=== PATIENT | female | born 1950 | race Caucasian/White ===

== ENCOUNTER 2019-08-12 11:23 | Emergency (ER) | payer MEDICARE, OTHER ==
--- NOTE | 2019-08-12 12:26 | ED ---
Shortness of Breath - HPI Summary HPI Summary: Patient is a 69 y/o F presenting to the ED via EMS for a chief complaint of shortness of breath that began on 08/06/19. Patient is present with her sister. Patient complains of nonproductive cough, wheezing, nasal congestion, sore throat, bilateral LE edema, and nausea. The shortness of breath worsens when lying down. Patient also notes an ear ache, more on the right than left, which she attributes to being on an airplane recently. Patient denies fever, vomiting , or diarrhea. She was prescribed an antibiotic by her dentist, amoxicillin, for tooth pain that she took for her symptoms without relief. She also took ibuprofen without relief. Recently, the patient was on vacation in [facility] for 2 weeks visiting family, returning to the on 08/10/19. She denies positive sick contact. Patient received an influenza vaccination this year. PMHx is significant for spinal stenosis, depression, and sepsis after a back surgery for a spinal fracture. She takes pain medications. In the past, she has used an inhaler for pneumonia. Patient smokes 3 cigarettes a day, but denies alcohol use. Medications reviewed. Allergies noted. - History of Current Complaint Chief Complaint: EDShortnessOfBreath Hx Obtained From: Patient Onset/Duration: Sudden Onset, Still Present Timing: Constant Current Severity: Moderate Dyspnea At: Rest Aggravating Factors: Nothing Alleviating Factors: Nothing Associated Signs & Symptoms: Cough (Nonproductive), Wheezing, Nasal Congestion - 0, Edema - Bilateral LE - Allergy/Home Medications Allergies/Adverse Reactions: Allergies Allergy/AdvReac Type Severity Reaction Status Date / Time MS Sulfa Drugs Allergy Severe Anaphylatic Verified 04/28/17 12:21 Shock PMH/Surg Hx/FS Hx/Imm Hx Previously Healthy: Yes Endocrine/Hematology History: Reports: Hx Anemia Denies: Hx Anticoagulant Therapy, Hx Blood Disorders, Hx Blood Transfusions, Hx Bone Marrow Disease, Hx Diabetes, Hx Systemic Lupus Erythematosus, Hx Sickle Cell Disease, Hx Thyroid Disease, Hx Unexplained Bleeding, Other Endocrine/ Hematological Disorders Cardiovascular History: Reports: Hx Syncope Denies: Hx Aneurysm, Hx Angina, Hx Angioplasty, Hx Auto Implanted Cardiovert Defib, Hx Cardiac Arrest, Hx Cardiomegaly, Hx Congenital Heart Disease, Hx Congestive Heart Failure, Hx Coronary Artery Disease, Hx Deep Vein Thrombosis, Hx Hypercholesterolemia, Hx Hypotension, Hx Hypertension, Hx Pacemaker/ICD, Hx Peripheral Vascular Disease, Hx Rheumatic Fever, Hx Valvular Heart Disease, Other Cardiovascular Problems/Disorders Respiratory History: Reports: Hx Pneumonia Denies: Hx Asthma, Hx Chronic Bronchitis, Hx Chronic Obstructive Pulmonary Disease (COPD), Hx Cystic Fibrosis, Hx Lung Cancer, Hx Pleural Effusion, Hx Pulmonary Edema, Hx Pulmonary Embolism, Hx Seasonal Allergies, Hx Sleep Apnea, Other Respiratory Problems/Disorders GI History: Reports: Hx Gastroesophageal Reflux Disease, Other GI Disorders - TAKES A LOT OF PAIN MEDS WHICH CAUSES CONSTIPATION Denies: Hx Cirrhosis, Hx Crohn's Disease, Hx Diverticulosis, Hx Gall Bladder Disease, Hx Gastrointestinal Bleed, Hx Hiatal Hernia, Hx Irritable Bowel, Hx Jaundice, Hx Obstructive Bowel, Hx Ileostomy, Hx Pyloric Stenosis, Hx Ulcer History: Denies: Hx Dialysis, Hx Renal Disease Musculoskeletal History: Reports: Hx Back Problems, Hx Orthopedic Injury - BROKE BACK IN 5 PLACES AND NECK IN 4 PLACES., Other Musculoskeletal History - previous back surgeries Denies: Hx Arthritis, Hx Bursitis, Hx Congenital Bone Abnormalities, Hx Fibromyalgia, Hx Gout, Hx Osteoporosis, Hx Scoliosis, Hx Tendonitis Sensory History: Reports: Hx Contacts or Glasses - glasses Denies: Hx Cataracts, Hx Eye Injury, Hx Eye Prosthesis, Hx Glaucoma, Hx Legally Blind, Hx Macular Degeneration, Hx Vision Problem, Hx Deafness, Hx Hearing Aid, Hx Hearing Problem, Other Sensory Impairments Opthamlomology History: Reports: Hx Contacts or Glasses - glasses Denies: Hx Cataracts, Hx Eye Injury, Hx Eye Prosthesis, Hx Glaucoma, Hx Legally Blind, Hx Macular Degeneration, Hx Vision Problem, Other Sensory Impairments EENT History: Denies: Hx Deafness Neurological History: Reports: Other Neuro Impairments/Disorders - PT SEEN BY NEUROLOGIST DUE TO SPINE INJURIES Psychiatric History: Reports: Hx Anxiety, Hx Depression, Hx Panic Disorder - LAST PANIC ATTACK IN EARLY 20S Denies: Hx Post Traumatic Stress Disorder, Hx Schizophrenia, Hx Suicide Attempt, Hx Substance Abuse, Other Psychiatric Issues/Disorders - Cancer History Hx Chemotherapy: No - Surgical History Surgical History: Yes Surgery Procedure, Year, and Place: 1952 TONSELECTOMY. 1987 TUBAL. 2001 CSP FUSION. 2009 LSP W/GRAFTING AND INSTRUMENTATION FOR SPINAL CYST AND POST OP COMPLICATIONS FOR STAPH INFECTION. 2011 POSTERIOR CSP FUSION. 12/12/13 HEMILAMINOTOMY. LUMBAR SPINE HEMILAMINOTOMY AND DISCECTOMY 02/22/2014. 05/20/14 LSP SURGERY DISCECTOMY AT [facility]. Hx Anesthesia Reactions: No Infectious Disease History: No Infectious Disease History: Denies: Hx Clostridium Difficile, Hx Hepatitis, Hx Human Immunodeficiency Virus (HIV), Hx of Known/Suspected MRSA, Hx Shingles, Hx Tuberculosis, Traveled Outside the [place] in Last 30 Days - Family History Known Family History: Positive: Cardiac Disease - CAD, Other - RA, cancer - Social History Occupation: Retired Lives: With Family Alcohol Use: None Hx Substance Use: Yes Substance Use Type: Reports: Prescribed Hx Tobacco Use: Yes Smoking Status (MU): Former Smoker Type: Cigarettes Amount Used/How Often: only when out with friends, very infrequent Length of Time of Smoking/Using Tobacco: used 8 years in the past, now just once in awhile at a libertarian Review of Systems Negative: Fever Positive: Sore Throat, Ear Ache - More on the right than left, Other - Positive nasal congestion and wheezing Positive: Shortness Of Breath, Cough - Nonproductive Positive: Nausea. Negative: Vomiting, Diarrhea Positive: Edema - Bilateral LE All Other Systems Reviewed And Are Negative: Yes Physical Exam - Summary Physical Exam Summary: Constitutional: Well-developed, Well-nourished, Alert. (-) Distressed Skin: Warm, Dry HENT: Normocephalic; Atraumatic Eyes: Conjunctiva normal Neck: Musculoskeletal ROM normal neck. (-) JVD, (-) Stridor, (-) Tracheal deviation Cardio: Rhythm regular, rate normal, Heart sounds normal; Intact distal pulses; Radial pulses are 2+ and symmetric. (-) Murmur Pulmonary/Chest wall: Effort normal. (-) Respiratory distress, (-) Rales. Wheezing in all lung [place]. Abd: Soft, (-) tenderness, (-) Distension, (-) Guarding, (-) Rebound Musculoskeletal: (-) Edema Lymph: (-) Cervical adenopathy Neuro: Alert, Oriented x3 Psych: Mood and affect Normal Triage Information Reviewed: Yes Vital Signs On Initial Exam: Initial Vitals Temp Pulse Resp BP Pulse Ox 98.5 F 65 18 196/79 92 08/12/19 11:28 08/12/19 11:28 08/12/19 11:28 08/12/19 11:28 08/12/19 11:28 Vital Signs Reviewed: Yes Procedures - Sedation Patient Received Moderate/Deep Sedation with Procedure: No Diagnostics - Vital Signs Vital Signs Temp Pulse Resp BP Pulse Ox 08/12/19 11:28 98.5 F 65 18 196/79 92 - Laboratory Lab Statement: Any lab studies that have been ordered have been reviewed, and results considered in the medical decision making process. - Radiology Chest X-ray Radiology Interpretation Completed By: Radiologist Summary of Radiographic Findings: Chest X-ray IMPRESSION: RIGHT LOWER LUNG CONSOLIDATION. RECOMMEND FOLLOW-UP UNTIL RESOLUTION TO EXCLUDE UNDERLYING PULMONARY PARENCHYMAL PATHOLOGY. Reviewed by Dr. Silva. Re-Evaluation - Re-Evaluation First Eval Re-Evaluation Time: 13:09 Change: Unchanged Comment: At 13:09, after 1 nebulizer treatment, patient is still grossly unchanged. Course/Dx - Course Course Of Treatment: Patient is here with shortness of breath. Patient has had cough and fever as well. Patient next showed right lower lobe pneumonia. Patient given 2 breathing treatments improvement in her symptoms. Patient was given Augmentin and azithromycin. Patient is discharged in inhaler. Patient felt comfortable for discharge. - Diagnoses Provider Diagnoses: Right lower lobe pneumonia, Shortness of breath Discharge ED - Sign-Out/Discharge Documenting (check all that apply): Patient Departure - Discharge - Discharge Plan Condition: Stable Disposition: HOME Prescriptions: Albuterol HFA INHALER* [Ventolin HFA Inhaler*] 1 puff INH Q4H PRN #1 mdi PRN Reason: Wheezing Amoxicillin/Clavulanate TAB* [Augmentin TAB 875*] 875 mg PO BID 5 Days #10 tab Azithromycin TAB* [Zithromax TAB (Z-RALPH) 250 mg #6 tabs] 2 tab PO .TODAY, THEN 1 DAILY #1 ralph Patient Education Materials: Pneumonia (ED) Referrals: Berkley Doll MD [Primary Care Provider] - Additional Instructions: PLEASE RETURN TO EMERGENCY DEPARTMENT IF YOU FEEL WORSE, HAVE TROUBLE BREATHING , OR FOR ANY NEW OR WORSENING SYMPTOMS. Please follow up with your primary care physician. Please make all follow-ups in 1-3 days unless I advise you otherwise. Take your antibiotics and use your inhaler as prescribed. Buy pulse oximeter and if your level is below 92 % for longer than 10 minutes, return to the Emergency Department. - Billing Disposition and Condition Condition: STABLE Disposition: Home - Attestation Statements Document Initiated by Michael: Yes Documenting Scribe: Carito Mccall Provider For Whom Scribe is Documenting (Include Credential): Jovon Silva MD Scribe Attestation: I, Carito Mccall, scribed for Jovon Silva MD on 08/12/19 at 1907. Scribe Documentation Reviewed: Yes Provider Attestation: The documentation as recorded by the cristianibeCarito accurately reflects the service I personally performed and the decisions made by me, Jovon Silva MD Status of Scribe Document: Viewed
[2019-08-12] MEDS ORDERED: Albuterol/Ipratropium NEB.SOL* Albuterol 2.5 MG/Ipratropium 0.5 MG 3 ML INH ONE ×2 (12:27→13:08)
[2019-08-12 13:06] LABS: Influenza A Molecular NEGATIVE (Negative); Influenza B Molecular NEGATIVE (Negative)
[2019-08-12] MEDS ORDERED: Amoxicillin/Clavulanate TAB* 875 MG PO ONE (13:22)
[2019-08-12] MEDS ORDERED: Azithromycin TAB* 250 MG PO ONE (13:22)
[2019-08-12 14:00] VITALS: BP 175/62
== END 2019-08-12 13:59 | disposition home or self-care (01) ==
LOC: ED 11:23
DX: J18.1 Lobar pneumonia, unspecified organism (principal); D64.9 Anemia, unspecified; F17.210 Nicotine dependence, cigarettes, uncomplicated; Z88.2 Allergy status to sulfonamides; F41.9 Anxiety disorder, unspecified
CPT/HCPCS: 71046; 99283; A9270-GY

== ENCOUNTER 2019-08-13 08:04 | Observation (INO) | payer MEDICARE, OTHER ==
[2019-08-13] MEDS ORDERED: NS 0.9% 1000 ML** 1,000 ML IV ONE (08:22)
[2019-08-13] MEDS ORDERED: Azithromycin 500 mg/250 ml NS 500 MG/250 ML BAG IVPB ONE (08:26)
[2019-08-13] MEDS ORDERED: cefTRIAXone(*) 1 GM in NS 0.9% 50 ML* 50 ML IVPB ONE (08:26)
[2019-08-13] MEDS ORDERED: Albuterol/Ipratropium NEB.SOL* Albuterol 2.5 MG/Ipratropium 0.5 MG 3 ML INH ONE ×2 (08:27→08:58)
--- NOTE | 2019-08-13 08:29 | ED ---
Throat Pain/Nasal Congestion - HPI Summary HPI Summary: Patient is a 69 y/o F presenting to the ED for a chief complaint of cough and confusion. Patient is present with her sister. Patient was seen at [facility] on and diagnosed with pneumonia. At that time, she was prescribed a ZPack, Augmentin, and an inhaler. Patient's sister describes that the patient was confused on 08/13/19. Patient told her sister that she called Dr. Doll, the patient's PCP, and stated Dr. Doll was "mad at her." Her sister states the patient could not have called Dr. Doll because the patient's phone is broken. The patient's sister also notes the patient spilled the medication prescribed to her on 08/12/19. Her sister contacted Dr. Doll who recommended the patient be assessed at [facility] for altered mental status. Patient continues to have a cough. She denies abdominal pain or bilateral LE edema. Patient has oxygen that she uses at home and she used her prescribed inhaler on the night of 08/12/19. Any PMHx of asthma, cardiac problems, or COPD is denied. PSHx is significant for back surgery for which she takes pain medications. Allergies, including an allergy to Sulfa, are noted. - History of Current Complaint Chief Complaint: EDAltMentalStatus Time Seen by Provider: 08/13/19 08:08 Hx Obtained From: Patient, Family/F[employer]erg[employer] - Sister Onset/Duration: Sudden Onset, Still Present Severity: Moderate Cough: Nonproductive - Allergies/Home Medications Allergies/Adverse Reactions: Allergies Allergy/AdvReac Type Severity Reaction Status Date / Time Sulfa (Sulfonamide Allergy Anaphylatic Verified 08/13/19 08:11 Antibiotics) Shock PMH/Surg Hx/FS Hx/Imm Hx Previously Healthy: Yes Endocrine/Hematology History: Reports: Hx Anemia Denies: Hx Anticoagulant Therapy, Hx Blood Disorders, Hx Blood Transfusions, Hx Bone Marrow Disease, Hx Diabetes, Hx Systemic Lupus Erythematosus, Hx Sickle Cell Disease, Hx Thyroid Disease, Hx Unexplained Bleeding, Other Endocrine/ Hematological Disorders Cardiovascular History: Reports: Hx Syncope Denies: Hx Aneurysm, Hx Angina, Hx Angioplasty, Hx Auto Implanted Cardiovert Defib, Hx Cardiac Arrest, Hx Cardiomegaly, Hx Congenital Heart Disease, Hx Congestive Heart Failure, Hx Coronary Artery Disease, Hx Deep Vein Thrombosis, Hx Hypercholesterolemia, Hx Hypotension, Hx Hypertension, Hx Pacemaker/ICD, Hx Peripheral Vascular Disease, Hx Rheumatic Fever, Hx Valvular Heart Disease, Other Cardiovascular Problems/Disorders Respiratory History: Reports: Hx Pneumonia Denies: Hx Asthma, Hx Chronic Bronchitis, Hx Chronic Obstructive Pulmonary Disease (COPD), Hx Cystic Fibrosis, Hx Lung Cancer, Hx Pleural Effusion, Hx Pulmonary Edema, Hx Pulmonary Embolism, Hx Seasonal Allergies, Hx Sleep Apnea, Other Respiratory Problems/Disorders GI History: Reports: Hx Gastroesophageal Reflux Disease, Other GI Disorders - TAKES A LOT OF PAIN MEDS WHICH CAUSES CONSTIPATION Denies: Hx Cirrhosis, Hx Crohn's Disease, Hx Diverticulosis, Hx Gall Bladder Disease, Hx Gastrointestinal Bleed, Hx Hiatal Hernia, Hx Irritable Bowel, Hx Jaundice, Hx Obstructive Bowel, Hx Ileostomy, Hx Pyloric Stenosis, Hx Ulcer History: Denies: Hx Dialysis, Hx Renal Disease Musculoskeletal History: Reports: Hx Back Problems, Hx Orthopedic Injury - BROKE BACK IN 5 PLACES AND NECK IN 4 PLACES., Other Musculoskeletal History - previous back surgeries Denies: Hx Arthritis, Hx Bursitis, Hx Congenital Bone Abnormalities, Hx Fibromyalgia, Hx Gout, Hx Osteoporosis, Hx Scoliosis, Hx Tendonitis Sensory History: Reports: Hx Contacts or Glasses - glasses Denies: Hx Cataracts, Hx Eye Injury, Hx Eye Prosthesis, Hx Glaucoma, Hx Legally Blind, Hx Macular Degeneration, Hx Vision Problem, Hx Deafness, Hx Hearing Aid, Hx Hearing Problem, Other Sensory Impairments Opthamlomology History: Reports: Hx Contacts or Glasses - glasses Denies: Hx Cataracts, Hx Eye Injury, Hx Eye Prosthesis, Hx Glaucoma, Hx Legally Blind, Hx Macular Degeneration, Hx Vision Problem, Other Sensory Impairments EENT History: Denies: Hx Deafness Neurological History: Reports: Other Neuro Impairments/Disorders - PT SEEN BY NEUROLOGIST DUE TO SPINE INJURIES Psychiatric History: Reports: Hx Anxiety, Hx Depression, Hx Panic Disorder - LAST PANIC ATTACK IN EARLY 20S Denies: Hx Post Traumatic Stress Disorder, Hx Schizophrenia, Hx Suicide Attempt, Hx Substance Abuse, Other Psychiatric Issues/Disorders - Cancer History Hx Chemotherapy: No - Surgical History Surgical History: Yes Surgery Procedure, Year, and Place: 1952 TONSELECTOMY. 1987 TUBAL. 2001 CSP FUSION. 2009 LSP W/GRAFTING AND INSTRUMENTATION FOR SPINAL CYST AND POST OP COMPLICATIONS FOR STAPH INFECTION. 2011 POSTERIOR CSP FUSION. 12/12/13 HEMILAMINOTOMY. LUMBAR SPINE HEMILAMINOTOMY AND DISCECTOMY 02/22/2014. 05/20/14 LSP SURGERY DISCECTOMY AT [facility]. Hx Anesthesia Reactions: No Infectious Disease History: No Infectious Disease History: Denies: Hx Clostridium Difficile, Hx Hepatitis, Hx Human Immunodeficiency Virus (HIV), Hx of Known/Suspected MRSA, Hx Shingles, Hx Tuberculosis, Traveled Outside the in Last 30 Days - Family History Known Family History: Positive: Cardiac Disease - CAD, Other - RA, cancer - Social History Lives: Alone Alcohol Use: None Hx Substance Use: Yes Substance Use Type: Reports: Prescribed Hx Tobacco Use: Yes Smoking Status (MU): Former Smoker Type: Cigarettes Amount Used/How Often: only when out with friends, very infrequent Length of Time of Smoking/Using Tobacco: used 8 years in the past, now just once in awhile at a democrat Review of Systems Positive: Cough Negative: Abdominal Pain Negative: Edema - Bilateral LE Neurological: Other - Positive confusion All Other Systems Reviewed And Are Negative: Yes Physical Exam - Summary Physical Exam Summary: Constitutional: Well-developed, Well-nourished, Alert.(-) Distressed. Appears fatigued. Skin: Warm, Dry HENT: Normocephalic; Atraumatic. Dry mucous membranes. Eyes: Conjunctiva normal Neck: Musculoskeletal ROM normal neck. (-) JVD, (-) Stridor, (-) Tracheal deviation Cardio: Rhythm regular, rate normal, Heart sounds normal; Intact distal pulses; The pedal pulses are 2+ and symmetric. Radial pulses are 2+ and symmetric. (-) Murmur Pulmonary/Chest wall: Effort normal. (-) Respiratory distress, (-) Rales. Bilateral wheezing. Dry cough. Abd: Soft, (-) tenderness, (-) Distension, (-) Guarding, (-) Rebound Musculoskeletal: (-) Edema Lymph: (-) Cervical adenopathy Neuro: Alert, Oriented x3 Psych: Mood and affect Normal Triage Information Reviewed: Yes Vital Signs On Initial Exam: Initial Vitals Temp Pulse Resp BP Pulse Ox 98.4 F 63 16 169/88 96 08/13/19 08:05 08/13/19 08:05 08/13/19 08:05 08/13/19 08:05 08/13/19 08:05 Vital Signs Reviewed: Yes Procedures - Sedation Patient Received Moderate/Deep Sedation with Procedure: No Diagnostics - Vital Signs Vital Signs Temp Pulse Resp BP Pulse Ox 08/13/19 08:05 98.4 F 63 16 169/88 96 - Laboratory Result Diagrams: 08/13/19 08:25 08/13/19 08:25 Lab Statement: Any lab studies that have been ordered have been reviewed, and results considered in the medical decision making process. EENT Course/Dx - Course Course Of Treatment: Patient is a 69 y/o F presenting to the ED for a chief complaint of cough and confusion. Patient is present with her sister. Patient was seen at [facility] on 08/12/19 and diagnosed with pneumonia. At that time, she was prescribed a ZPack, Augmentin, and an inhaler. Patient's sister describes that the patient was confused on 08/13/19. Patient told her sister that she called Dr. Doll, the patient's PCP, and stated Dr. Doll was "mad at her. " Her sister states the patient could not have called Dr. Doll because the patient's phone is broken. The patient's sister also notes the patient spilled the medication prescribed to her on 08/12/19. Her sister contacted Dr. Doll who recommended the patient be assessed at [facility] for altered mental status. Patient continues to have a cough. She denies abdominal pain or bilateral LE edema. Patient has oxygen that she uses at home and she used her prescribed inhaler on the night of 08/12/19. Any PMHx of asthma, cardiac problems, or COPD is denied. PSHx is significant for back surgery for which she takes pain medications. Allergies, including an allergy to Sulfa, are noted. On exam, appears fatigued, dry mucous membranes, bilateral wheezing, dry cough. In the ED course, patient was given azithromycin 500 mg IVPB, IV fluids, and albuterol 1 neb INH. Laboratory abnormal findings: RBC 3.49, Hgb 11.0, Hct 32, MCH 32, MPV 6.2, sodium 132, potassium 5.4, chloride 94, carbon dioxide 34. At 09:38, Yudy Alas reviewed the patients case and agrees to admit the patient to [facility] with a diagnosis of narcotic abuse and pneumonia. Patient will be admitted to [facility] with a diagnosis of pneumonia and narcotic abuse. Patient's sister at the bedside raises concern for possible narcotic misuse/abuse given that she reportedly dissolves her extended release OxyContin in water before taking the medication in order to experience a greater effect. Patient's is out of town and patient will be alone, thus family is concerned for her well-being. - Diagnoses Provider Diagnoses: Narcotic abuse, Pneumonia - Provider Notifications Discussed Care Of Patient With: Yudy Alas - At 09:38, Yudy Alas reviewed the patients case and agrees to admit the patient to [facility] with a diagnosis of narcotic abuse and pneumonia. Time Discussed With Above Provider: 09:38 Instructed by Provider To: Admit As Inpatient Discharge ED - Sign-Out/Discharge Documenting (check all that apply): Patient Departure - Admit - Discharge Plan Condition: Stable Disposition: ADMITTED TO [facility] - Billing Disposition and Condition Condition: STABLE Disposition: Admitted to [facility] - Attestation Statements Document Initiated by Michael: Yes Documenting Scribe: Carito Mccall Provider For Whom Scribe is Documenting (Include Credential): Esteban López DO Scribe Attestation: Carito Smith scribed for Esteban López DO on 08/13/19 at 1753. Scribe Documentation Reviewed: Yes Provider Attestation: The documentation as recorded by the Carito rainey accurately reflects the service I personally performed and the decisions made by Esteban chambers DO Status of Scribe Document: Viewed
[2019-08-13 08:33] LABS: ABS Basophils 0.1 10^3/ul (0-0.2); ABS Eosinophils 0.3 10^3/ul (0-0.6); ABS Lymphocytes 1.9 10^3/ul (1.0-4.8); ABS Monocytes 0.7 10^3/ul (0-0.8); ABS Neutrophils 4.4 10^3/ul (1.5-7.7); Hematocrit 32 % (35-47); Lymphocyte % 26.3 %; Mean Corpuscular HGB Conc 34 g/dL (31-36); Mean Corpuscular Hemoglobin 32 pg (27-31); Mean Corpuscular Volume 93 fL (80-97); Mean Platelet Volume 6.2 fL (7.4-10.4); Nucleated Red Blood Cells % 0.1; Platelet Count 396 10^3/uL (150-450); Red Blood Count 3.49 10^6 /uL (3.70-4.87); Red Cell Distribution Width 14 % (10-15); White Blood Count 7.4 10^3/uL (3.5-10.8)
[2019-08-13 08:53] LABS: Albumin 3.6 g/dL (3.2-5.2); Albumin/Globulin Ratio 1.1 (1-3); BUN/Creatinine Ratio 13.6 (8-20); Calcium 9.3 mg/dL (8.6-10.3); EGFR African American 107.4 (>60); EGFR Non-African American 88.8 (>60); Globulin 3.3 g/dL (2-4); Total Bilirubin 0.2 mg/dL (0.2-1.0); Total Protein 6.9 g/dL (6.4-8.9)
[2019-08-13 08:57] LABS: Potassium 5.4 mmol/L (3.5-5.0)
[2019-08-13] MEDS ORDERED: Albuterol HFA INHALER* 8 gm MDI INH PRN (09:49)
[2019-08-13] MEDS ORDERED: Diazepam TAB(*) 5 MG PO PRN (09:49)
[2019-08-13] MEDS ORDERED: Fluticasone NASAL SPRAY 50MCG* 16 gm SPRAY BTL BOTH NARES PRN (09:49)
[2019-08-13] MEDS ORDERED: traZODone TAB* 100 MG PO PRN (09:49)
[2019-08-13] MEDS ORDERED: oxyCODONE TAB* 5 MG TAB PO PRN (09:49)
[2019-08-13] MEDS ORDERED: Acetaminophen TAB* 325 MG PO PRN (09:53)
[2019-08-13] MEDS ORDERED: PROCHLORPERAZINE INJ 5 MG/ML 2 ML VIAL IV PRN (09:56)
[2019-08-13] MEDS ORDERED: ESTRADIOL VAGINAL 10 MCG VAGINAL SCH (10:00)
[2019-08-13 10:02] LABS: C Reactive Protein 35.38 mg/L (<8.01)
[2019-08-13] MEDS ORDERED: oxyCODONE SR TAB(*) 40 MG TAB.SR PO SCH (11:00)
[2019-08-13] MEDS: oxyCODONE SR TAB(*) 20 MG TAB.SR PO SCH ×2 (11:59→21:16)
[2019-08-13] MEDS ORDERED: Albuterol 2.5 MG/3 ML NEB.SOL* (0.083%) INH PRN (12:50)
[2019-08-13] MEDS: Carisoprodol TAB* 350 MG PO PRN ×2 (12:51→21:13)
[2019-08-13] MEDS: oxyCODONE SR TAB(*) 40 MG TAB.SR PO SCH ×2 (12:51→21:15)
[2019-08-13] MEDS: Mupirocin 2% OINT* TUBE TOPICAL SCH ×2 (12:57→21:20)
[2019-08-13] MEDS: Heparin VIAL(*) 5000 UNITS/ML VIAL (FIVE THOUSAND) SUBCUT SCH ×2 (12:59→21:16)
--- NOTE | 2019-08-13 14:57 | HP ---
CC: Dr. Berkley Doll * HISTORY AND PHYSICAL: DATE OF ADMISSION: 08/13/19 TIME OF EVALUATION: 9:30 a.m. PRIMARY CARE PROVIDER: Dr. Berkley Doll. CHIEF COMPLAINT: "She is confused" as per sister. HISTORY OF PRESENT ILLNESS: Ms. Castellanos is a 69-year-old female with a past medical history of chronic neck and low back pain, depression, GERD, hyperlipidemia, anxiety, vertigo, who re-presents to the emergency room with complaints of confusion. The patient had a recent visit to [facility] where she spent 2 weeks visiting family and she [place] the [place]. She presented to the emergency room on 08/12/19 with complaints of nonproductive cough, wheezing, nasal congestion, sore throat, and nausea. Her symptoms started on 08/06/19 and did not improve with over- the-counter treatments. In the emergency room, she was diagnosed with pneumonia after her x-ray revealed a right lower lobe pneumonia. She was prescribed Augmentin and azithromycin and was discharged home to follow up with Dr. Doll as an outpatient. Today, she returned to the emergency room because her sister, who is visiting from [place], found the patient confused. She describes multiple medications were scattered on the floor and she also states that the patient has been dissolving her OxyContin to take it. She was concerned with the patient's condition and especially because she is by herself. The patient's is on a trip to [place] and he is the one who usually helps the patient with her medications at home. Although her sister is here now, she will be returning to [place] soon and she was concerned with the patient's capacity to care for herself at home. She contacted Dr. Doll, who recommended that the patient return to the emergency room for further evaluation and admission. Initially, the patient was not agreeable with staying in the hospital. She states that her lethargy is secondary to her being so tired as she is not able to sleep and she is still tired from her trip, but eventually after talking to her family the patient has agreed to stay in the hospital for further evaluation. She denies fever, chills, chest pain, palpitations, diarrhea, or other complaints. She also denies abusing or misusing her usual pain medications. PAST MEDICAL HISTORY: 1. Chronic neck pain, status post anterior cervical diskectomy, fusion, allograft, and anterior cervical plating C4-5, C5-6, C6-7 in 2001 and posterior cervical fusion in 2011. 2. Low back pain, status post vertebral fracture and microlumbar spine surgery with grafting and instrumentation for a spinal cyst, complicated by postoperative staph infection with I and D of the lumbar wound for Staph aureus , placement of wound VAC, treated with prolonged course of antibiotics in 2009. 3. Depression. 4. Anxiety. 5. GERD. 6. Hyperlipidemia. 7. Vertigo. 8. Left median neuropathy. 9. Rectocele. 10. Cystocele. 11. Chronic postnasal drip. PAST SURGICAL HISTORY: Includes: 1. Spinal surgery as described above. 2. Tonsillectomy in 1952. 3. Status post tubal ligation in 1987. MEDICATION LIST: 1. Acetaminophen 1000 mg p.o. q.6 hours p.r.n. pain. 2. Albuterol HFA 2 puffs inhaled q.6 hours p.r.n. shortness of breath. 3. Augmentin 875 mg p.o. b.i.d. 4. Z-Kofi 250 mg p.o. daily. 5. Carisoprodol 350 mg p.o. 4 times daily as needed for pain. 6. Cholecalciferol 1000 units p.o. daily. 7. Vitamin B12 1000 mcg p.o. daily. 8. Diazepam 5 to 10 mg p.o. b.i.d. as needed for anxiety. 9. Doxycycline 100 mg p.o. b.i.d. 10. Duloxetine 120 mg p.o. daily. 11. Estradiol vaginal tablet 10 mcg in the vagina twice a week. 12. Ibuprofen 600 mg p.o. q.6 hours p.r.n. moderate pain. 13. Metoprolol tartrate 25 mg p.o. b.i.d. 14. Mirtazapine 45 mg p.o. daily. 15. Mometasone nasal spray 2 sprays to both nares daily as needed for allergy symptoms. 16. Mupirocin 2% ointment topical t.i.d. 17. OxyContin 100 mg p.o. q.12 hours. 18. Oxycodone 20 mg p.o. q.4 hours p.r.n. severe pain. 19. Senna 2 tablets p.o. b.i.d. 20. Trazodone 100 to 200 mg p.o. at bedtime. 21. Triamcinolone 0.025% topical b.i.d. 22. Zolpidem 12.5 mg p.o. at bedtime as needed for insomnia. ALLERGIES: With SULFA, the patient had anaphylactic shock. FAMILY HISTORY: Positive for coronary artery disease, rheumatoid arthritis, and cancer. SOCIAL HISTORY: The patient is a smoker, 3 cigarettes a day, described as very infrequent over the past 8 years. Denies alcohol or drug use. Surrogate decision maker is her , Kelvin Castellanos, phone number is [phone]. REVIEW OF SYSTEMS: Limited due to the patient's lethargy, but a 10-point review of systems was performed and all the pertinent negative and positive findings I was able to obtain are in the HPI. PHYSICAL EXAMINATION GENERAL: The patient is an elderly lady, sitting up in the ED stretcher, in no acute distress. VITAL SIGNS: Temperature 97.4, heart rate is 75, respiratory rate is 18, oxygen saturation 97% on room air, blood pressure is 169/94. HEENT: Pupils are equal. Moist mucous membranes. CHEST: Breath sounds present bilaterally with crackles in the right base and scattered wheezing and rhonchi. CVS: Normal S1, S2. Regular rate and rhythm. ABDOMEN: Soft, nontender, nondistended. Bowel sounds are present. EXTREMITIES: No edema. NEURO: The patient is lethargic, but arousable to voice, oriented x3. Face is symmetric. Speech is clear. She is able to move all 4 extremities with no focal neurological deficits. DIAGNOSTIC STUDIES/LAB DATA: The patient had a CBC that showed a WBC of 7.4, hemoglobin of 11, hematocrit of 32, platelets of 396 with 59% neutrophils. Chemistry showed a sodium of 132, potassium of 5.4, chloride of 94, bicarb of 34 , BUN of 9, creatinine of 0.6, glucose of 94, lactic acid is 0.8, calcium is 9.3. LFTs are normal. CRP is 35. Chest x-ray done on 08/12/19 showed right lower lung consolidation. ASSESSMENT AND PLAN: Ms. Castellanos is a 69-year-old female with a past medical history of chronic pain, status post multiple spinal surgeries; depression; anxiety; gastroesophageal reflux disease; hyperlipidemia; vertigo; tobacco use, who presents to the emergency room with her sister with complaints of confusion after being diagnosed with pneumonia 24 hours ago. 1. Confusion. In the setting of infection and multiple controlled substance use. The patient's pneumonia does not appear to be severe enough to justify her confusion, but she is on a hefty regimen with opioids, antidepressants, and sleep aids. The patient denies any medication misuse, but her sister is concerned as she found multiple pills scattered on the floor. I discussed the case with Dr. Doll and she tells me that the patient has been on a stable opioid dose for many years with no report of abuse, so the plan at this time is to give supportive care and continue her usual doses to avoid withdrawal. We will continue her OxyContin and hold her p.r.n. oxycodone if her lethargy continues. At this time, she does not have any focal neurological deficits to suggest any other etiology and as our interview went by, the patient became much more awake and closer to her baseline to the point that she wanted to leave the emergency room against medical advice and eventually was convinced by myself and her family to stay for further management. 2. Pneumonia. The patient does not meet sepsis criteria at this time and it was not for her altered mental status, she could continue her treatment as an outpatient. For now, I will switch her to ceftriaxone and Zithromax. She had negative influenza on her prior emergency room visit. She does not require supplemental oxygen. Her lactic acid was normal and she already received a liter of fluids in the emergency room. She does not appear to require further fluid resuscitation at this time. The patient had scattered wheezing on her physical examination in the emergency room. She does not have a diagnosis of chronic obstructive pulmonary disease, but she is a smoker. We will continue albuterol nebulizations as needed for wheezing and when the patient is more awake she will benefit from tobacco cessation education. 3. Chronic pain. We will continue her usual OxyContin doses and p.r.n. oxycodone, but we will hold if she continues to feel signs of sedation. 4. Depression. We will continue duloxetine and mirtazapine. 5. DVT prophylaxis: The patient has a score of 3 on the DVT Prophylaxis Risk Assessment Guide and she will be started on subcutaneous heparin. 6. Code status is full. TIME SPENT: Approximately 50 minutes was spent with the patient and sister's interview, medical records review, physical examination to complete this admission, more than half of this time was spent [id number] with the patient and coordination of care. The case was also discussed with Dr. Doll and she will be taking over the patient's care tomorrow. [id number]/[facility] #: [id number] [facility]
[2019-08-13] MEDS: oxyCODONE TAB* 5 MG TAB PO PRN (18:08)
[2019-08-13] MEDS ORDERED: Senna TAB 8.6 mg* TAB PO SCH (21:00)
[2019-08-13] MEDS: Senna TAB 8.6 mg* TAB PO SCH (21:11)
[2019-08-13] MEDS: Metoprolol Tartrate TAB* 25 MG PO SCH (21:12)
[2019-08-13] MEDS: Mirtazapine TAB* 15 MG PO SCH (21:14)
[2019-08-13] MEDS: TRIAMCINOLONE 0.025% TOPICAL SCH (21:19)
[2019-08-13] MEDS: Zolpidem TAB* 5 MG PO PRN (23:10)
[2019-08-14 07:07] LABS: BUN/Creatinine Ratio 9.8 (8-20); Calcium 9.5 mg/dL (8.6-10.3); EGFR African American 117.7 (>60); EGFR Non-African American 97.2 (>60); Potassium 3.9 mmol/L (3.5-5.0)
[2019-08-14] MEDS: Heparin VIAL(*) 5000 UNITS/ML VIAL (FIVE THOUSAND) SUBCUT SCH ×3 (07:31→20:56)
[2019-08-14 08:13] LABS: ABS Basophils 0.1 10^3/ul (0-0.2); ABS Eosinophils 0.3 10^3/ul (0-0.6); ABS Lymphocytes 1.6 10^3/ul (1.0-4.8); ABS Monocytes 0.6 10^3/ul (0-0.8); ABS Neutrophils 3.7 10^3/ul (1.5-7.7); Eosinophil % 4.6 %; Hematocrit 34 % (35-47); Lymphocyte % 25.6 %; Mean Corpuscular HGB Conc 35 g/dL (31-36); Mean Corpuscular Hemoglobin 32 pg (27-31); Mean Corpuscular Volume 92 fL (80-97); Mean Platelet Volume 6.1 fL (7.4-10.4); Platelet Count 456 10^3/uL (150-450); Red Blood Count 3.74 10^6 /uL (3.70-4.87); Red Cell Distribution Width 14 % (10-15); White Blood Count 6.3 10^3/uL (3.5-10.8)
[2019-08-14] MEDS: cefTRIAXone(*) 1 GM in NS 0.9% 50 ML* 50 ML IVPB SCH (08:26)
[2019-08-14] MEDS: Mupirocin 2% OINT* TUBE TOPICAL SCH ×3 (08:28→20:55)
[2019-08-14] MEDS: Cyanocobalamin TAB* 500 MCG PO SCH (08:29)
[2019-08-14] MEDS: TRIAMCINOLONE 0.025% TOPICAL SCH ×2 (08:29→20:55)
[2019-08-14] MEDS: DULoxetine DR CAP* 60 MG CAP.DR PO SCH (08:29)
[2019-08-14] MEDS: Metoprolol Tartrate TAB* 25 MG PO SCH ×2 (08:29→20:51)
[2019-08-14] MEDS: oxyCODONE SR TAB(*) 20 MG TAB.SR PO SCH ×2 (08:30→20:50)
[2019-08-14] MEDS: oxyCODONE SR TAB(*) 40 MG TAB.SR PO SCH ×2 (08:30→20:50)
[2019-08-14] MEDS: Cholecalciferol TAB* 1000 UNITS PO SCH (08:30)
[2019-08-14] MEDS: Carisoprodol TAB* 350 MG PO PRN ×2 (08:34→14:43)
[2019-08-14] MEDS ORDERED: Mirtazapine TAB* 15 MG PO SCH (09:00)
[2019-08-14] MEDS: Azithromycin 500 mg/250 ml NS 500 MG/250 ML BAG IVPB SCH (09:59)
[2019-08-14 12:59] LABS: C Reactive Protein 21.09 mg/L (<8.01)
[2019-08-14] MEDS: oxyCODONE TAB* 5 MG TAB PO PRN ×2 (14:43→19:39)
[2019-08-14] MEDS: amLODIPine TAB* 5 MG PO SCH (16:40)
[2019-08-14] MEDS: Ibuprofen TAB* 600 MG PO PRN (16:40)
[2019-08-14] MEDS: Albuterol HFA INHALER* 8 gm MDI INH SCH ×3 (18:11→23:07)
[2019-08-14] MEDS: Mirtazapine TAB* 15 MG PO SCH (20:50)
[2019-08-14] MEDS: Senna TAB 8.6 mg* TAB PO SCH (20:52)
[2019-08-14] MEDS: Zolpidem TAB* 5 MG PO PRN (23:44)
[2019-08-15] MEDS: Albuterol HFA INHALER* 8 gm MDI INH SCH ×3 (03:28→11:12)
[2019-08-15] MEDS: Heparin VIAL(*) 5000 UNITS/ML VIAL (FIVE THOUSAND) SUBCUT SCH (05:31)
[2019-08-15] MEDS: oxyCODONE TAB* 5 MG TAB PO PRN (05:32)
[2019-08-15 06:36] LABS: BUN/Creatinine Ratio 14.3 (8-20); Calcium 9.3 mg/dL (8.6-10.3); EGFR African American 129.9 (>60); EGFR Non-African American 107.3 (>60); Magnesium 1.7 mg/dL (1.9-2.7); Phosphorus 4.2 mg/dL (2.5-5.0); Potassium 3.9 mmol/L (3.5-5.0)
[2019-08-15] MEDS: oxyCODONE SR TAB(*) 20 MG TAB.SR PO SCH (08:47)
[2019-08-15] MEDS: DULoxetine DR CAP* 60 MG CAP.DR PO SCH (08:47)
[2019-08-15] MEDS: Metoprolol Tartrate TAB* 25 MG PO SCH (08:47)
[2019-08-15] MEDS: Ibuprofen TAB* 600 MG PO PRN (08:47)
[2019-08-15] MEDS: amLODIPine TAB* 5 MG PO SCH (08:48)
[2019-08-15] MEDS: oxyCODONE SR TAB(*) 40 MG TAB.SR PO SCH (08:48)
[2019-08-15] MEDS: cefTRIAXone(*) 1 GM in NS 0.9% 50 ML* 50 ML IVPB SCH (08:48)
[2019-08-15] MEDS: Mupirocin 2% OINT* TUBE TOPICAL SCH (08:48)
[2019-08-15] MEDS: Cyanocobalamin TAB* 500 MCG PO SCH (08:48)
[2019-08-15] MEDS: Cholecalciferol TAB* 1000 UNITS PO SCH (08:48)
[2019-08-15] MEDS: TRIAMCINOLONE 0.025% TOPICAL SCH (08:49)
[2019-08-15 10:02] LABS: C Reactive Protein 12.87 mg/L (<8.01)
[2019-08-15] MEDS: Azithromycin 500 mg/250 ml NS 500 MG/250 ML BAG IVPB SCH (10:42)
[2019-08-15 12:02] VITALS: BP 150/69
--- NOTE | 2019-08-15 21:27 | DS ---
DISCHARGE SUMMARY: DATE OF ADMISSION: 08/13/19 DATE OF DISCHARGE: 08/15/19 DISCHARGE DIAGNOSES: 1. Pneumonia. 2. Tobacco abuse. 3. Chronic pain, on opioids. 4. Chronic neck pain, status post anterior cervical diskectomy, fusion, allograft, and anterior cervical plating, C4-5, C5-6, C6-7 in 2001 and posterior cervical fusion in 2011. 5. Low back pain, status post vertebral fracture, micro lumbar spine surgery with grafting and instrumentation for spinal cyst, complicated by postoperative staphylococcus infection with I and D of the lumbar wound for Staphylococcus aureus, placement of wound VAC, treated with prolonged course of antibiotics in 2009. 6. Anxiety. 7. Gastroesophageal reflux disease. 8. Hyperlipidemia. 9. History of vertigo. 10. History of rectocele and cystocele. 11. Chronic postnasal drip. 12. Hypertension. HISTORY: Nena Castellanos is a 69-year-old woman admitted with pneumonia and confusion. She had previously been to the emergency room the previous day and was told to come back because of inability to care for herself, not clearly taking her medications. Many pills found on the floor at her house. Please see the dictated admission note for details of the present illness, past medical history, family history, social and personal history, review of systems, and physical examination. LABORATORY DATA: CBC on 08/13/19, WBC 7.4, H and H 11/32, MCV 93, PLT 396,000. CBC on 08/14/19, WBC 6.3, H and H 12/34, MCV 92, PLT 456,000. Chemistries on , sodium 132, potassium 5.4, chloride 94, CO2 34, BUN and creatinine 9/ 0.66. Rest of her comprehensive metabolic panel is within normal limits. CRP was 35.38 on 08/13/19, 21.09 on 08/14/19, and 12.87 on 08/15/19. Electrolytes prior to discharge on 08/15/19, sodium 134, potassium 3.9, chloride 99, CO2 26, BUN and creatinine 8/0.56, glucose 196, magnesium slightly low at 1.7. IMAGING: Chest x-ray prior to admission had shown pneumonia, right lower lobe. Chest x-ray report on 08/15/19 showed bilateral lower lobe infiltrates, said to be unchanged. HOSPITAL COURSE: The patient was admitted and placed on ceftriaxone and azithromycin. She improved clinically. She did exhibit some confusion related to taking zolpidem for sleep, but otherwise was much improved. Initially, she insisted on wanting to leave but agreed to stay. She felt much better by the time of discharge, although remained somewhat wheezy and had rales at the right base. Her blood pressure was high during her hospitalization and she was started on amlodipine. MEDICATIONS AT THE TIME OF DISCHARGE: 1. Zolpidem 12.5 mg at h.s. p.r.n. sleep. 2. Carisoprodol 350 mg q.i.d. p.r.n. 3. Senna 8.6 mg 2 tablets twice a day. 4. Mometasone nasal spray, 2 sprays both nostrils daily p.r.n. 5. Mirtazapine 45 mg at h.s. 6. Duloxetine 120 mg daily. 7. Oxycodone 20 mg q.4h. p.r.n. pain. 8. Valium 5 to 10 mg b.i.d. p.r.n. She uses this for travel anxiety. 9. B12 1000 mcg daily. 10. Vitamin D 1000 units daily. 11. Augmentin 875 twice a day #10. 12. Albuterol 2 puffs q.4h. p.r.n. wheezing. 13. OxyContin 100 mg twice a day. 14. Metoprolol 25 mg twice a day. 15. Estradiol, Vagifem 10 mcg vaginal tab twice a day. 16. Amlodipine 5 mg daily. ACTIVITIES: As tolerated. FOLLOWUP: With me should be in 4 to 7 days. DIET: Usual. She is being discharged home in improved condition. [id number]/[facility] #: [id number] [facility]
== END 2019-08-15 13:45 | disposition home or self-care (01) ==
LOC: ED 08:04 → MED 09:47
PROVIDERS: ADMIT Internal Medicine; ATTEND Internal Medicine Geriatric Medicine
DX: J18.9 Pneumonia, unspecified organism (principal); G89.29 Other chronic pain; I10 Essential (primary) hypertension; M54.2 Cervicalgia; M54.5 Low back pain; F41.9 Anxiety disorder, unspecified; K21.9 Gastro-esophageal reflux disease without esophagitis; R41.0 Disorientation, unspecified; R09.82 Postnasal drip; N81.6 Rectocele; E78.5 Hyperlipidemia, unspecified; Z79.899 Other long term (current) drug therapy; R05 Cough; D64.9 Anemia, unspecified; F17.210 Nicotine dependence, cigarettes, uncomplicated; Z88.2 Allergy status to sulfonamides
CPT/HCPCS: 36415; 71046; 80048; 80053; 83605; 83735; 84100; 85025; 86140; 94640; 96361; 96365; 96366; 96367; 96372; 96375; 99283; A9270-GY; G0378; J0456; J0696; J0780; J1644

== ENCOUNTER 2019-10-17 13:34 | Inpatient (IN) | payer MEDICARE, OTHER ==
[2019-10-17] MEDS ORDERED: Famotidine IV* 10 MG/ML 2 ML (20 mg) IV SLOW PU ONE (16:30)
[2019-10-17] MEDS ORDERED: Lactated Ringers 1000 ML Bag* 1,000 ML IV ONE (16:30)
[2019-10-17] MEDS ORDERED: Ondansetron INJ* 2 MG/ML VIAL IV ONE (16:30)
[2019-10-17 16:36] LABS: ABS Lymphocytes 0.7 10^3/ul (1.0-4.8); ABS Monocytes 0.6 10^3/ul (0-0.8); ABS Neutrophils 12.3 10^3/ul (1.5-7.7); Hematocrit 42 % (35-47); Lymphocyte % 5.3 %; Mean Corpuscular HGB Conc 34 g/dL (31-36); Mean Corpuscular Hemoglobin 31 pg (27-31); Mean Corpuscular Volume 92 fL (80-97); Mean Platelet Volume 6.6 fL (7.4-10.4); Platelet Count 438 10^3/uL (150-450); Red Blood Count 4.52 10^6 /uL (3.70-4.87); Red Cell Distribution Width 14 % (10-15); White Blood Count 13.7 10^3/uL (3.5-10.8)
--- NOTE | 2019-10-17 16:43 | ED ---
GI/ HPI - HPI Summary HPI Summary: Patient is a 69 y/o F presenting to the ED for a chief complaint of suprapubic abdominal pain, nausea, and vomiting since returning from a recent trip on 10/13. Patient also reports decreased appetite, diarrhea, and urinary frequency. She denies cough, nasal congestion, rhinorrhea, urinary burning or dysuria. Recently, patient travelled through [place], [place] and [place] airports. Patient was [place] [facility] [place] for pneumonia contracted after a trip to [facility]. She takes 80 mg of oxycodone BID for a PMHx of spinal stenosis. PMHx is also significant for recurrent pneumonia. PSHx is significant for [address] Berkley Doll is her PCP, who recently increased the dosage of one of her medications. An allergy to Sulfa drugs is reported. - History of Current Complaint Chief Complaint: EDNauseaVomitDiarrh Time Seen by Provider: 10/17/19 16:30 Stated Complaint: VOMITING Hx Obtained From: Patient Onset/Duration: Atraumatic, Still Present Timing: Constant Severity: Severe Current Severity: Severe Pain Intensity: 10 Location of Pain: Suprapubic Associated Signs and Symptoms: Positive: Nausea, Vomiting, Diarrhea, Change in Appetite - Decreased, Abdominal Pain - Suprapubic, UTI Symptoms - Positive urinary frequency; negative urinary burning. Negative: Dysuria - Additional Pertinent History Primary Care Physician: [id number] - Allergy/Home Medications Allergies/Adverse Reactions: Allergies Allergy/AdvReac Type Severity Reaction Status Date / Time Sulfa (Sulfonamide Allergy Anaphylatic Verified 10/17/19 13:53 Antibiotics) Shock Home Medications: Home Medications Carisoprodol TAB* [Soma TAB*] 350 mg PO QID PRN 05/29/12 [History Confirmed 12/31] Zolpidem TAB* [Ambien*] 12.5 mg PO BEDTIME PRN 05/29/12 [History Confirmed 10/16] Duloxetine HCl 120 mg PO DAILY 04/26/17 [History Confirmed 10/17/19] Mirtazapine TAB* [Remeron TAB*] 45 mg PO QPM 04/26/17 [History Confirmed ] Mometasone NASAL (NF) [Nasonex (NF)] 2 spray BOTH NARES DAILY PRN 04/26/17 [ History Confirmed 10/17/19] Cholecalciferol (Vitamin D3) [Vitamin D3] 1,000 unit PO DAILY 04/28/17 [History Confirmed 10/17/19] Cyanocobalamin TAB* [Vitamin B12 TAB*] 1,000 mcg PO DAILY 04/28/17 [History Confirmed 10/17/19] Diazepam TAB(*) [Valium TAB(*)] 5 - 10 mg PO BID PRN 04/28/17 [History Confirmed 10/17/19] Albuterol HFA INHALER* [Ventolin HFA Inhaler*] 2 puff INH Q4H PRN 08/12/19 [ History Confirmed 10/17/19] Metoprolol Tartrate TAB* [Lopressor TAB*] 25 mg PO BID 08/12/19 [History Confirmed 10/17/19] Oxycodone HCl [Oxycontin 80 mg] 80 mg PO Q12H 08/12/19 [History Confirmed ] Acetaminophen TAB* [Tylenol TAB*] 650 mg PO Q6H PRN tab 08/15/19 [Rx Confirmed 10/17/19] Oxycodone HCl 20 mg PO Q4H PRN 08/31/19 [History Confirmed 10/17/19] Oxycodone HCl [Oxycodone HCl ER] 20 mg PO Q12H 08/31/19 [History Confirmed 10/16] DULoxetine DR ATKINSON* [Cymbalta CAP*] 120 mg PO DAILY 09/05/19 [Rx Confirmed 10/17/19] Estradiol VAGINAL TAB(NF) [Vagifem] 10 mcg VAGINAL WEEKLY #0 09/05/19 [Rx Confirmed 10/17/19] Hemorrhoidal OINT* [Preparation H*] 1 applic MO TID oint 09/05/19 [Rx Confirmed 10/17/19] Pantoprazole TAB * [Protonix TAB*] 40 mg PO BID 30 Days #60 tab 09/05/19 [Rx Confirmed 10/17/19] Senna TAB 8.6 mg* [Senokot 8.6 mg TAB*] 2 tab PO BID tab 09/05/19 [Rx Confirmed 10/17/19] PMH/Surg Hx/FS Hx/Imm Hx Previously Healthy: Yes Endocrine/Hematology History: Reports: Hx Anemia Denies: Hx Anticoagulant Therapy, Hx Blood Disorders, Hx Blood Transfusions, Hx Bone Marrow Disease, Hx Diabetes, Hx Systemic Lupus Erythematosus, Hx Sickle Cell Disease, Hx Thyroid Disease, Hx Unexplained Bleeding, Other Endocrine/ Hematological Disorders Cardiovascular History: Reports: Hx Hypercholesterolemia, Hx Hypertension, Hx Syncope Denies: Hx Aneurysm, Hx Angina, Hx Angioplasty, Hx Auto Implanted Cardiovert Defib, Hx Cardiac Arrest, Hx Cardiomegaly, Hx Congenital Heart Disease, Hx Congestive Heart Failure, Hx Coronary Artery Disease, Hx Deep Vein Thrombosis, Hx Hypotension, Hx Pacemaker/ICD, Hx Peripheral Vascular Disease, Hx Rheumatic Fever, Hx Valvular Heart Disease, Other Cardiovascular Problems/Disorders Respiratory History: Reports: Hx Pneumonia Denies: Hx Asthma, Hx Chronic Bronchitis, Hx Chronic Obstructive Pulmonary Disease (COPD), Hx Cystic Fibrosis, Hx Lung Cancer, Hx Pleural Effusion, Hx Pulmonary Edema, Hx Pulmonary Embolism, Hx Seasonal Allergies, Hx Sleep Apnea, Other Respiratory Problems/Disorders GI History: Reports: Hx Gastroesophageal Reflux Disease, Other GI Disorders - TAKES A LOT OF PAIN MEDS WHICH CAUSES CONSTIPATION Denies: Hx Cirrhosis, Hx Crohn's Disease, Hx Diverticulosis, Hx Gall Bladder Disease, Hx Gastrointestinal Bleed, Hx Hiatal Hernia, Hx Irritable Bowel, Hx Jaundice, Hx Obstructive Bowel, Hx Ileostomy, Hx Pyloric Stenosis, Hx Ulcer History: Denies: Hx Dialysis, Hx Renal Disease Musculoskeletal History: Reports: Hx Back Problems, Hx Orthopedic Injury - BROKE BACK IN 5 PLACES AND NECK IN 4 PLACES., Other Musculoskeletal History - previous back surgeries Denies: Hx Arthritis, Hx Bursitis, Hx Congenital Bone Abnormalities, Hx Fibromyalgia, Hx Gout, Hx Osteoporosis, Hx Scoliosis, Hx Tendonitis Sensory History: Reports: Hx Contacts or Glasses - glasses Denies: Hx Cataracts, Hx Eye Injury, Hx Eye Prosthesis, Hx Glaucoma, Hx Legally Blind, Hx Macular Degeneration, Hx Vision Problem, Hx Deafness, Hx Hearing Aid, Hx Hearing Problem, Other Sensory Impairments Opthamlomology History: Reports: Hx Contacts or Glasses - glasses Denies: Hx Cataracts, Hx Eye Injury, Hx Eye Prosthesis, Hx Glaucoma, Hx Legally Blind, Hx Macular Degeneration, Hx Vision Problem, Other Sensory Impairments EENT History: Denies: Hx Deafness Neurological History: Reports: Other Neuro Impairments/Disorders - PT SEEN BY NEUROLOGIST DUE TO SPINE INJURIES Psychiatric History: Reports: Hx Anxiety, Hx Depression, Hx Panic Disorder - LAST PANIC ATTACK IN EARLY 20S Denies: Hx Post Traumatic Stress Disorder, Hx Schizophrenia, Hx Suicide Attempt, Hx Substance Abuse, Other Psychiatric Issues/Disorders - Cancer History Hx Chemotherapy: No - Surgical History Surgical History: Yes Surgery Procedure, Year, and Place: 1952 TONSELECTOMY. 1987 TUBAL. 2001 CSP FUSION. 2009 L[facility] W/GRAFTING AND INSTRUMENTATION FOR SPINAL CYST AND POST OP COMPLICATIONS FOR STAPH INFECTION. 2011 POSTERIOR CSP FUSION. 12/12/13 HEMILAMINOTOMY. LUMBAR SPINE HEMILAMINOTOMY AND DISCECTOMY 02/22/2014. 05/20/14 LSP SURGERY DISCECTOMY AT [facility]. Hx Anesthesia Reactions: No - Immunization History Date of Influenza Vaccine: 05/2019 Infectious Disease History: No Infectious Disease History: Denies: Hx Clostridium Difficile, Hx Hepatitis, Hx Human Immunodeficiency Virus (HIV), Hx of Known/Suspected MRSA, Hx Shingles, Hx Tuberculosis, Traveled Outside the in Last 30 Days - Family History Known Family History: Positive: Cardiac Disease - CAD, Other - RA, cancer - Social History Occupation: Retired Lives: With Family Alcohol Use: None Hx Substance Use: Yes Substance Use Type: Reports: Prescribed Substance Use Comment - Amount & Last Used: 160 mg oxycodone daily Hx Tobacco Use: Yes Smoking Status (MU): Former Smoker Type: Cigarettes Amount Used/How Often: only when out with friends, very infrequent Length of Time of Smoking/Using Tobacco: used 8 years in the past, now just once in awhile at a alliance party Review of Systems Positive: Other - Positive decreased appetite Negative: Nasal Discharge, Other - Negative nasal congestion Negative: Cough Positive: Abdominal Pain - Suprapubic, Vomiting, Diarrhea, Nausea Positive: frequency - Urinary. Negative: burning - Urinary, dysuria All Other Systems Reviewed And Are Negative: Yes Physical Exam - Summary Physical Exam Summary: Constitutional: Well-developed, Well-nourished, Alert. (-) Distressed Skin: Warm, Dry HENT: Normocephalic; Atraumatic Eyes: Conjunctiva normal Neck: Musculoskeletal ROM normal neck. (-) JVD, (-) Stridor, (-) Tracheal deviation Cardio: Rhythm regular, Tachycardia, Heart sounds normal; Intact distal pulses; The pedal pulses are 2+ and symmetric. Radial pulses are 2+ and symmetric. Pulmonary/Chest wall: Effort normal. (-) Respiratory distress, (-) Wheezes, (-) Rales Abd: Soft, (-) Distension, (-) Guarding, (-) Rebound. Suprapubic tenderness Musculoskeletal: (-) Edema. Old surgical scars to the lumbar region that are healed, intact, and non-tender. Neuro: Alert, Oriented x3 Psych: Mood and affect Normal Triage Information Reviewed: Yes Vital Signs On Initial Exam: Initial Vitals Temp Pulse Resp BP Pulse Ox 98.0 F 89 16 211/110 98 10/17/19 13:46 10/17/19 13:46 10/17/19 13:46 10/17/19 13:46 10/17/19 13:46 Vital Signs Reviewed: Yes Procedures - Sedation Patient Received Moderate/Deep Sedation with Procedure: No Diagnostics - Vital Signs Vital Signs Temp Pulse Resp BP Pulse Ox 10/17/19 13:46 98.0 F 89 16 211/110 98 - Laboratory Result Diagrams: 10/17/19 16:28 10/17/19 16:28 Lab Statement: Any lab studies that have been ordered have been reviewed, and results considered in the medical decision making process. - EKG 17:17 Cardiac Rate: NL - 74 BPM EKG Rhythm: Sinus Rhythm ST Segment: Normal Ectopy: None Summary of EKG Findings: An EKG at 17:17 reveals normal sinus rhythm with 74 BPM , lead II and lead III suggests LAE, nml axis, nml intervals. No STEMI. No acute changes. Reviewed and interpreted by Dr. Ferguson. Re-Evaluation - Re-Evaluation First Eval Re-Evaluation Time: 17:37 Change: Improved Comment: At 17:37, patients tachycardia is improved after being given 50 mcg fentanyl. Second Eval Re-Evaluation Time: 18:40 Change: Unchanged Comment: At 18:40, patient is tachycardic and continues to complain of abdominal pain and back pain. I will continue IV fluids and give 100 mcg of fentanyl. GIGU Course/Dx - Course Course Of Treatment: Patient is a 69 y/o F presenting to the ED for a chief complaint of suprapubic abdominal pain, nausea, and vomiting since returning from a recent trip on 10/14/19. Patient also reports decreased appetite, diarrhea, and urinary frequency. She denies cough, nasal congestion, rhinorrhea , urinary burning or dysuria. Patient was admitted [place] [facility] [place] for pneumonia contracted after a trip to [facility]. She takes 80 mg of oxycodone BID for a PMHx of spinal stenosis. PMHx is also significant for recurrent pneumonia. PSHx is significant for 8 spinal surgeries. On exam, tachycardia, suprapubic tenderness, old surgical scars to the lumbar region that are healed, intact, and non-tender. In the ED course, patient was given Pepcid 20 mg IV SLOW, Fentanyl 50 mcg IV SLOW, Fentanyl 100 mcg IV SLOW, Lactated Ringers 1000 mls, Zofran 4 mg IV, and Toprol 50 mg PO. At 17:37, patients tachycardia is resolved after being given 50 mcg fentanyl. An EKG at 17:17 reveals normal sinus rhythm with 74 BPM, lead II and lead III suggests LAE, nml axis, nml intervals. No STEMI. No acute changes. At 17:37, patients tachycardia is resolved after being given 50 mcg of fentanyl. At 18:40, patient is tachycardic and continues to complain of abdominal pain and back pain. I will continue IV fluids and give 100 mcg of fentany. Patient is a sign out at 19:00 on 10/17/[address] Dev Ferguson to Dr. Adriel Yeung at shift change, pending imaging results, further workup, and disposition. - Diagnoses Provider Diagnoses: Essential hypertension, Abdominal pain Discharge ED - Sign-Out/Discharge Documenting (check all that apply): Sign-Out Patient Signing out patient TO: Adriel Yeung - Patient is a sign out at 19:00 on 10/[address] Dev Ferguson to Dr. Adriel Yeung at shift change, pending imaging results, further workup, and disposition. - Discharge Plan Condition: Stable Referrals: Berkley Doll MD [Primary Care Provider] - - Billing Disposition and Condition Condition: STABLE - Attestation Statements Document Initiated by Scribe: Yes Documenting Scribe: Carito Mccall Provider For Whom Michael is Documenting (Include Credential): Dev Ferguson MD Scribe Attestation: Carito Smith scribed for Dev Ferguson MD on 10/17/19 at 1902. Scribe Documentation Reviewed: Yes Provider Attestation: The documentation as recorded by the Carito rainey accurately reflects the service I personally performed and the decisions made by me, Dev Ferguson MD Status of Scribe Document: Viewed
[2019-10-17] MEDS ORDERED: fentaNYL* 50 MCG/ML 2 ML VIAL (100 MCG VIAL) IV SLOW PU ONE ×2 (16:44→18:43)
[2019-10-17 16:59] LABS: Albumin 4.7 g/dL (3.2-5.2); Albumin/Globulin Ratio 1.3 (1-3); BUN/Creatinine Ratio 18.2 (8-20); C Reactive Protein 2.79 mg/L (<8.01); Calcium 11.1 mg/dL (8.6-10.3); EGFR African American 77.1 (>60); EGFR Non-African American 63.7 (>60); Globulin 3.6 g/dL (2-4); Potassium 3.6 mmol/L (3.5-5.0); Total Bilirubin 0.6 mg/dL (0.2-1.0); Total Protein 8.3 g/dL (6.4-8.9)
[2019-10-17] MEDS ORDERED: Metoprolol Succinate XL TAB* 50 MG PO ONE (17:37)
[2019-10-17] MEDS ORDERED: Metoprolol Tartrate IV* 1 MG/ML 5 ML VIAL IV ONE (17:37)
[2019-10-17 18:19] LABS: Urine Appearance Clear; Urine Bilirubin Negative (Negative); Urine Blood Negative (Negative); Urine Color Yellow; Urine Glucose 1+(50 mg/dL) (Negative); Urine Ketones 1+ (Negative); Urine Nitrite Negative (Negative); Urine Protein 1+(30 mg/dL) (Negative); Urine Specific Gravity 1.016 (1.010-1.030); Urine Urobilinogen Negative (Negative)
[2019-10-17 18:43] LABS: Urine Bacteria Absent (Absent); Urine Cellular Casts Present (Absent); Urine Red Blood Cell 1+(3-5/hpf) (Absent); Urine Squamous Epithelial Cell Present (Absent); Urine White Blood Cell 3+(>20/hpf) (Absent)
[2019-10-17] MEDS ORDERED: Iohexol 350* (CONTRAST) 500 ML MDV IV ONE (18:57)
[2019-10-17] MEDS ORDERED: Lactated Ringers 1000 ML Bag* 1,000 ML IV SCH (19:00)
--- NOTE | 2019-10-17 19:11 | ED ---
Progress - Progress Note Progress Note: This pt is a sign out from Dr. Dev Ferguson MD to Dr. Adriel Yeung MD pending further chest/abdomen/pelvis CTA and disposition. - Results/Orders Results/Orders: CTA Chest: 1. No aortic dissection, aneurysm, or rupture. 2. No pulmonary emboli. Findings which in the proper clinical setting can be seen in pulmonary hypertension. 3. Minimal enlargement of left lung mass which has been previously biopsied stable associated daughter nodules and right lung nodules. Correlate with prior biopsy results. 4. Left thyroid lobe nodules. No followup imaging indicated per ACR guidelines. ED physician has reviewed this report. CT A/P: 1. Findings of infectious colitis. 2. Bosniak type I renal cyst. No follow up. ED physician has reviewed this report. Re-Evaluation - Re-Evaluation First Eval Re-Evaluation Time: 17:37 Change: Improved Comment: At 17:37, patients tachycardia is improved after being given 50 mcg fentanyl. Second Eval Re-Evaluation Time: 18:40 Change: Unchanged Comment: At 18:40, patient is tachycardic and continues to complain of abdominal pain and back pain. I will continue IV fluids and give 100 mcg of fentanyl. Course/Dx - Course Course Of Treatment: This pt is a sign out from Dr. Dev Ferguson MD to Dr. Adriel Yeung MD pending further chest/abdomen/pelvis CTA and disposition. CTA Chest: 1. No aortic dissection, aneurysm, or rupture. 2. No pulmonary emboli. Findings which in the proper clinical setting can be. seen in pulmonary hypertension. 3. Minimal enlargement of left lung mass which has been previously biopsied stable associated daughter nodules and right lung nodules. Correlate with prior. biopsy results. 4. Left thyroid lobe nodules. No followup imaging indicated per ACR guidelines. CT A/P: 1. Findings of infectious colitis. 2. Bosniak type I renal cyst. No followup. Dr. Joyner, Hospitalist, will admit the pt for further care with a Dx of infectious collitis and nausea and vomiting. - Diagnoses Provider Diagnoses: Infectious colitis, N&V (nausea and vomiting) - Provider Notifications Discussed Care Of Patient With: Ambrocio Joyner Time Discussed With Above Provider: 21:08 Instructed by Provider To: Admit As Inpatient Admit/Transition Orders Completed By ED Provider: Yes Discharge ED - Sign-Out/Discharge Documenting (check all that apply): Patient Departure - admitted, Receiving Sign -Out Receiving patient FROM: Dev Ferguson - Discharge Plan Condition: Stable Disposition: ADMITTED TO [facility] - Billing Disposition and Condition Condition: STABLE Disposition: Admitted to [facility] - Attestation Statements Document Initiated by Anne: Yes Documenting Scribe: Manish Blake Provider For Whom Ana Paulaibe is Documenting (Include Credential): Adriel Yeung MD Scribe Attestation: Manish Smith, scribed for Adriel Yeung MD on 10/18/19 at 0251. Scribe Documentation Reviewed: Yes Provider Attestation: The documentation as recorded by the Manish rainey accurately reflects the service I personally performed and the decisions made by Adriel chambers MD Status of Scribe Document: Viewed
[2019-10-17] MEDS ORDERED: Metoprolol Tartrate TAB* 50 mg PO ONE (21:25)
[2019-10-17] MEDS ORDERED: Acetaminophen TAB* 325 MG PO PRN (21:36)
[2019-10-17] MEDS ORDERED: Albuterol HFA INHALER* 8 gm MDI INH PRN (21:36)
[2019-10-17] MEDS ORDERED: Al Hydrox/Mg Hydrox/Simet LIQ* 30 ML UDC PO PRN (21:49)
[2019-10-17] MEDS ORDERED: Ondansetron INJ* 2 MG/ML VIAL IV PRN (21:49)
[2019-10-17] MEDS ORDERED: ZOSYN 3.375 GM x ONE DOSE over 30 miuntes IVPB ×2 (22:30)
--- NOTE | 2019-10-17 22:48 | HP ---
History of Present Illness - History of Present Illness Reason for Visit: Abdominal pain, Nausea, Vomiting, Diarrhea - Past Medical History Cardiac: HTN Pulmonary: Pneumonia - recurrent [employer]PER[employer]: Other - Spinal stenosis - Past Surgical History Past Surgical History: Other - 8 Spinal surgeries, Neck surgery - Past Family History Family History: Arthritis, Hypertension - Dad, Other - Rheumathoid arthritis-- Mom; HTN--Dad - Past Social History Smoke: <1 pack per day, Quit - 08/2019 Alcohol: Rare Drugs: None Lives: With Family Review of Systems - Measurements Intake and Output: Intake and Output Last 24 Hours 10/15/19 10/16/19 10/17/19 10/18/19 06:59 06:59 06:59 06:59 Intake Total 1000 Balance 1000 Weight 78.925 kg Intake: IV Fluids 1000 - Review of Systems Constitutional Symptoms: Positive: Fatigue Dermatology: Positive: Normal HEENT: Positive: Normal Eyes: Positive: Normal Thyroid: Positive: Normal Pulmonary: Positive: Normal Negative: Cough, Sputum, Respiratory Distress, Shortness of Breath, Asthma Cardiology: Negative: Chest Pain, Shortness of Breath, Palpitations, Edema, Syncope, Claudication, Proximal NocturnalDyspnea, Orthopnoea Gastroenterology: Positive: Abdominal Pain, Nausea, Vomiting, Anorexia, Diarrhea Negative: Haematemesis, Melena Genital - Urinary: Negative: Dysuria, Hematuria, Polyuria Genitourinay - Female: Positive: Menopause Musculoskeletal: Positive: Low Back Pain Endocrinology: Negative: Polydipsia, Polyuria Hematologic/Lymphatic: Positive: Anemia Neurology: Positive: Normal Psychiatry: Positive: Normal Allergic/Immunologic: Negative: Asthma Objective Active Medications: Acetaminophen (Tylenol Tab*) 650 mg PO Q6H PRN PRN Reason: MILD PAIN or TEMP > 100.4 Al Hydrox/Mg Hydrox/Simethicone (Maalox Plus*) 30 ml PO Q6H PRN PRN Reason: INDIGESTION Albuterol (Ventolin Hfa Inhaler*) 2 puff INH Q4H PRN PRN Reason: SOB/WHEEZING Carisoprodol (Soma Tab*) 350 mg PO QID PRN PRN Reason: PAIN Cholecalciferol (Vitamin D Tab*) 1,000 units PO DAILY [facility] Cyanocobalamin (Vitamin B12 Tab*) 1,000 mcg PO DAILY [facility] Duloxetine HCl (Cymbalta Cap*) 120 mg PO DAILY [facility] Enoxaparin Sodium (Lovenox(*)) 40 mg SUBCUT BEDTIME PRIYANKA Piperacillin Sod/Tazobactam (Sod 3.375 gm/ Sodium Chloride) 100 mls @ 25 mls/ hr IVPB Q8H PRIYANKA Sodium Chloride (Ns 0.9% 1000 Ml) 1,000 mls @ 125 mls/hr IV PER RATE PRIYANKA Piperacillin Sod/Tazobactam (Sod 3.375 gm/ Sodium Chloride) 100 mls @ 200 mls/ hr IVPB ONCE ONE Stop: 10/17/19 22:59 Metoprolol Tartrate (Lopressor Tab*) 25 mg PO BID PRIYANKA Mirtazapine (Remeron Tab*) 45 mg PO BEDTIME PRIYANKA Ondansetron HCl (Zofran Inj*) 4 mg IV Q4H PRN PRN Reason: NAUSEA/VOMITING Oxycodone HCl (Roxycodone Tab*) 20 mg PO Q4H PRN PRN Reason: PAIN - SEVERE Pantoprazole Sodium (Protonix Tab*) 40 mg PO BID PRIYANKA Zolpidem Tartrate (Ambien Tab*) 10 mg PO BEDTIME PRN PRN Reason: INSOMNIA Vital Signs - 8 hr 10/17/19 10/17/19 10/17/19 16:47 16:48 17:00 Pulse Rate 105 99 103 Respiratory Rate Blood Pressure 193/99 (mmHg) O2 Sat by Pulse 98 99 99 Oximetry 10/17/19 10/17/19 10/17/19 17:03 17:18 17:25 Pulse Rate 86 79 Respiratory 18 Rate Blood Pressure 222/98 207/84 (mmHg) O2 Sat by Pulse 99 99 Oximetry 10/17/19 10/17/19 10/17/19 17:34 17:48 18:00 Pulse Rate 77 78 77 Respiratory Rate Blood Pressure 211/92 208/92 (mmHg) O2 Sat by Pulse 97 99 98 Oximetry 10/17/19 10/17/19 10/17/19 18:07 18:20 18:23 Pulse Rate 77 75 80 Respiratory Rate Blood Pressure 225/109 225/109 229/104 (mmHg) O2 Sat by Pulse 97 97 98 Oximetry 10/17/19 10/17/19 10/17/19 18:26 18:36 18:38 Pulse Rate 78 91 78 Respiratory Rate Blood Pressure 224/87 218/105 215/112 (mmHg) O2 Sat by Pulse 98 97 99 Oximetry 10/17/19 10/17/19 10/17/19 18:53 18:55 19:00 Pulse Rate 84 82 Respiratory 20 Rate Blood Pressure 227/101 (mmHg) O2 Sat by Pulse 95 99 Oximetry 10/17/19 10/17/19 10/17/19 19:41 20:18 20:20 Pulse Rate 82 91 91 Respiratory Rate Blood Pressure 222/108 218/107 (mmHg) O2 Sat by Pulse 96 98 98 Oximetry 10/17/19 10/17/19 10/17/19 20:21 20:23 20:38 Pulse Rate 89 77 77 Respiratory Rate Blood Pressure 212/96 211/116 (mmHg) O2 Sat by Pulse 99 96 97 Oximetry 10/17/19 10/17/19 10/17/19 20:55 21:00 21:23 Pulse Rate 83 74 78 Respiratory Rate Blood Pressure 207/107 225/107 (mmHg) O2 Sat by Pulse 98 96 95 Oximetry 10/17/19 10/17/19 10/17/19 21:38 21:53 22:00 Pulse Rate 74 73 Respiratory Rate Blood Pressure 213/103 213/97 (mmHg) O2 Sat by Pulse 97 97 Oximetry 10/17/19 10/17/19 22:08 22:23 Pulse Rate 74 72 Respiratory Rate Blood Pressure 213/102 223/97 (mmHg) O2 Sat by Pulse 95 96 Oximetry Appearance: Awake, alert, no apparent distress noted. Eyes: No Scleral Icterus Ears/Nose/Mouth/Throat: NL Teeth, Lips, Gums, Clear Oropharnyx, Mucous Membranes Moist Neck: NL Appearance and Movements; NL JVP, No Thyroid Enlargement, Masses Respiratory: Symmetrical Chest Expansion and Respiratory Effort, Clear to Auscultation Cardiovascular: NL Sounds; No Murmurs; No JVD, RRR, No Edema Abdominal: NL Sounds; No Tenderness; No Distention, No Hepatosplenomegaly Lymphatic: No Cervical Adenopathy Extremities: No Edema, No Clubbing, Cyanosis Skin: No Rash or Ulcers Neurological: Alert and Oriented x 3, NL Muscle Strength and Tone Result Diagrams: 10/17/19 16:28 10/17/19 16:28 Diagnostic Imaging: Diagnostics Summary of EKG Findings [17:17 An EKG at 17:17 reveals normal sinus rhythm with ] 74 BPM, lead II and lead III suggests LAE, nml axis, nml intervals. No STEMI. No acute changes. Reviewed and interpreted by Dr. Ferguson. CT ABD/Pel IMPRESSION: Infectious colitis EKG Data: Diagnostics Summary of EKG Findings [17:17 An EKG at 17:17 reveals normal sinus rhythm with ] 74 BPM, lead II and lead III suggests LAE, nml axis, nml intervals. No STEMI. No acute changes. Reviewed and interpreted by Dr. Ferguson. Assess/Plan/Problems-Billing Assessment: 69 yo female with complaint of abdominal pain, intractable nausea and vomiting with CT findings indicative of infectious colitis. - Patient Problems (1) Infectious colitis Current Visit: Yes Status: Acute Code(s): A09 - INFECTIOUS GASTROENTERITIS AND COLITIS, UNSPECIFIED SNOMED Code(s): 49219346 Comment: CT evidence of Colitis noted I will start IV Zosyn 3.375 g Q8H over 4 hours. Follow up AM labs (2) Intractable nausea and vomiting Current Visit: Yes Status: Acute Code(s): R11.2 - NAUSEA WITH VOMITING, UNSPECIFIED SNOMED Code(s): 131045864 Comment: continue IVF hydration with NS @ 125 ml/Hour. Monitor electrolytes and replete as needed. Zofran for nausea/vomiting (3) HTN (hypertension), benign Current Visit: Yes Status: Acute Code(s): I10 - ESSENTIAL (PRIMARY) HYPERTENSION SNOMED Code(s): 29151418 Comment: c/w home meds with holding parameters (4) DVT prophylaxis Current Visit: Yes Status: Acute Code(s): Z29.9 - ENCOUNTER FOR PROPHYLACTIC MEASURES, UNSPECIFIED SNOMED Code(s): 294051443 Comment: Lovenox (5) Full code status Current Visit: Yes Status: Acute Code(s): Z78.9 - OTHER SPECIFIED HEALTH STATUS SNOMED Code(s): 898637102 (6) Herniated lumbar intervertebral disc Current Visit: No Status: Acute Priority: High Onset Date: 02/21/14 Code (s): M51.26 - OTHER INTERVERTEBRAL DISC DISPLACEMENT, LUMBAR REGION SNOMED Code(s): 189501776 Comment: Pain control. Status and Disposition: Admit to medicine and encourage PO intake as tolerated.
[2019-10-18] MEDS: NS 0.9% 1000 ML** 1,000 ML IV SCH ×2 (01:33→16:56)
[2019-10-18] MEDS: oxyCODONE TAB* 5 MG TAB PO PRN ×4 (01:33→21:52)
[2019-10-18] MEDS: Zolpidem TAB* 10 MG PO PRN ×2 (01:35→21:51)
[2019-10-18] MEDS: Enoxaparin(*) 40 MG/0.4 ML SYR SUBCUT SCH ×2 (01:35→21:50)
[2019-10-18] MEDS: Pantoprazole TAB * 40 MG TAB PO SCH ×3 (01:36→21:51)
[2019-10-18] MEDS: Piperacillin/Tazobac ADVAN(*) 3.375 GM in NS 0.9% 100 ML* 100 ML IVPB SCH ×3 (05:42→21:52)
[2019-10-18 06:09] LABS: ABS Lymphocytes 2.2 10^3/ul (1.0-4.8); ABS Neutrophils 8.2 10^3/ul (1.5-7.7); Eosinophil % 0.1 %; Hematocrit 34 % (35-47); Hemoglobin 11.5 g/dL (12.0-16.0); Mean Corpuscular HGB Conc 34 g/dL (31-36); Mean Corpuscular Hemoglobin 31 pg (27-31); Mean Corpuscular Volume 92 fL (80-97); Mean Platelet Volume 6.8 fL (7.4-10.4); Platelet Count 336 10^3/uL (150-450); Red Blood Count 3.67 10^6 /uL (3.70-4.87); Red Cell Distribution Width 14 % (10-15); White Blood Count 11.5 10^3/uL (3.5-10.8)
[2019-10-18 06:25] LABS: Calcium 9.1 mg/dL (8.6-10.3); EGFR African American 86.1 (>60); EGFR Non-African American 71.1 (>60); Magnesium 1.6 mg/dL (1.9-2.7); Potassium 3.3 mmol/L (3.5-5.0)
[2019-10-18] MEDS: DULoxetine DR CAP* 60 MG CAP.DR PO SCH (07:46)
[2019-10-18] MEDS: Metoprolol Tartrate TAB* 25 MG PO SCH ×2 (07:46→21:51)
[2019-10-18] MEDS: Cholecalciferol TAB* 1000 UNITS PO SCH (07:46)
[2019-10-18] MEDS: Cyanocobalamin TAB* 500 MCG PO SCH (07:46)
[2019-10-18] MEDS ORDERED: Magnesium Sulfate 2 GM IV* 2 GM/50 ML BAG IVPB ONE (09:54)
[2019-10-18 10:13] LABS: Phosphorus 4.3 mg/dL (2.5-5.0)
[2019-10-18] MEDS: Carisoprodol TAB* 350 MG PO PRN (10:28)
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
[2019-10-18] MEDS: Mirtazapine TAB* 15 MG PO SCH (21:51)
[2019-10-19] MEDS: Methadone TAB* 10 MG PO SCH ×3 (02:46→16:04)
[2019-10-19] MEDS: NS 0.9% 1000 ML** 1,000 ML IV SCH (02:48)
[2019-10-19] MEDS: Carisoprodol TAB* 350 MG PO PRN ×3 (04:37→20:05)
[2019-10-19 04:55] LABS: Hematocrit 30 % (35-47); Hemoglobin 10.2 g/dL (12.0-16.0); Mean Corpuscular HGB Conc 34 g/dL (31-36); Mean Corpuscular Hemoglobin 32 pg (27-31); Mean Corpuscular Volume 94 fL (80-97); Platelet Count 259 10^3/uL (150-450); Red Blood Count 3.22 10^6 /uL (3.70-4.87); Red Cell Distribution Width 14 % (10-15)
[2019-10-19] MEDS: oxyCODONE TAB* 5 MG TAB PO PRN ×3 (05:09→20:05)
[2019-10-19 05:12] LABS: BUN/Creatinine Ratio 19.4 (8-20); Calcium 8.2 mg/dL (8.6-10.3); EGFR African American 97.2 (>60); EGFR Non-African American 80.3 (>60); Potassium 3.2 mmol/L (3.5-5.0)
[2019-10-19] MEDS: Piperacillin/Tazobac ADVAN(*) 3.375 GM in NS 0.9% 100 ML* 100 ML IVPB SCH (05:52)
[2019-10-19] MEDS: Cyanocobalamin TAB* 500 MCG PO SCH (09:12)
[2019-10-19] MEDS: Pantoprazole TAB * 40 MG TAB PO SCH ×2 (09:13→20:06)
[2019-10-19] MEDS: Cholecalciferol TAB* 1000 UNITS PO SCH (09:13)
[2019-10-19] MEDS: Metoprolol Tartrate TAB* 25 MG PO SCH ×2 (09:13→20:04)
[2019-10-19] MEDS: DULoxetine DR CAP* 60 MG CAP.DR PO SCH (09:13)
--- NOTE | 2019-10-19 15:52 | PN ---
Progress Note - Progress Note Date of Service: 10/19/19 Note: INPATIENT PAIN-PROGRESS She notes that she doesn't get as much relief from taking a methadone as she does from taking OxyContin. I told her that this is a process, and that the switchover might not be without a few bumps. She agrees to proceed. Still has a lot of neck pain Current Medications Acetaminophen (Tylenol Tab*) 650 mg PO Q6H PRN PRN Reason: MILD PAIN or TEMP > 100.4 Al Hydrox/Mg Hydrox/Simethicone (Maalox Plus*) 30 ml PO Q6H PRN PRN Reason: INDIGESTION Albuterol (Ventolin Hfa Inhaler*) 2 puff INH Q4H PRN PRN Reason: SOB/WHEEZING Carisoprodol (Soma Tab*) 350 mg PO QID PRN PRN Reason: PAIN Last Admin: 10/19/19 12:04 Dose: 350 mg Cholecalciferol (Vitamin D Tab*) 1,000 units PO DAILY [facility] Last Admin: 10/19/19 09:13 Dose: 1,000 units Cyanocobalamin (Vitamin B12 Tab*) 1,000 mcg PO DAILY [facility] Last Admin: 10/19/19 09:12 Dose: 1,000 mcg Duloxetine HCl (Cymbalta Cap*) 120 mg PO DAILY [facility] Last Admin: 10/19/19 09:13 Dose: 120 mg Enoxaparin Sodium (Lovenox(*)) 40 mg SUBCUT BEDTIME [facility] Last Admin: 10/18/19 21:50 Dose: 40 mg Methadone HCl (Dolophine Tab*) 10 mg PO Q8H [facility] Last Admin: 10/19/19 09:13 Dose: 10 mg Metoprolol Tartrate (Lopressor Tab*) 25 mg PO BID [facility] Last Admin: 10/19/19 09:13 Dose: 25 mg Mirtazapine (Remeron Tab*) 45 mg PO BEDTIME [facility] Last Admin: 10/18/19 21:51 Dose: 45 mg Oxycodone HCl (Roxycodone Tab*) 15 mg PO Q4H PRN PRN Reason: PAIN - SEVERE Last Admin: 10/19/19 12:04 Dose: 15 mg Pantoprazole Sodium (Protonix Tab*) 40 mg PO BID [facility] Last Admin: 10/19/19 09:13 Dose: 40 mg Prochlorperazine (Compazine 10 Mg Tab) 10 mg PO Q8HR PRN PRN Reason: NAUSEA Zolpidem Tartrate (Ambien Tab*) 10 mg PO BEDTIME PRN PRN Reason: INSOMNIA Last Admin: 10/18/19 21:51 Dose: 10 mg Vital Signs Temp Pulse Resp BP Pulse Ox 97.7 F 52 18 148/67 99 10/19/19 07:23 10/19/19 07:23 10/19/19 12:04 10/19/19 07:23 10/19/19 07:23 EXAM: LUNGS: Clear HEART: reg rhythm NECK: ROM slightly limited EXTREMITIES: Normal tone NEUROLOGIC: A&O. Muscle strength 5/5 ASSESSMENT: 1. Failed Back Surgery 2. Failed Neck SUrgery PLAN: Increase Methadone to 15 mg TID. Lower oxycodone to 10 mg Q4 PRN. Follow her to see when further adjustments should be made.
[2019-10-19] MEDS: Senna TAB 8.6 mg* TAB PO SCH (20:04)
[2019-10-19] MEDS: Mirtazapine TAB* 15 MG PO SCH (20:06)
[2019-10-19] MEDS: Enoxaparin(*) 40 MG/0.4 ML SYR SUBCUT SCH (20:10)
[2019-10-19] MEDS: Zolpidem TAB* 10 MG PO PRN (22:27)
[2019-10-20] MEDS: Methadone TAB* 10 MG PO SCH ×4 (00:01→23:11)
[2019-10-20] MEDS: Cyanocobalamin TAB* 500 MCG PO SCH (08:13)
[2019-10-20] MEDS: Pantoprazole TAB * 40 MG TAB PO SCH ×2 (08:13→20:28)
[2019-10-20] MEDS: Senna TAB 8.6 mg* TAB PO SCH ×2 (08:14→20:29)
[2019-10-20] MEDS: DULoxetine DR CAP* 60 MG CAP.DR PO SCH (08:14)
[2019-10-20] MEDS: oxyCODONE TAB* 5 MG TAB PO PRN ×2 (08:14→14:51)
[2019-10-20] MEDS: Cholecalciferol TAB* 1000 UNITS PO SCH (08:14)
[2019-10-20] MEDS: Metoprolol Tartrate TAB* 25 MG PO SCH ×2 (08:14→20:28)
[2019-10-20] MEDS: Enoxaparin(*) 40 MG/0.4 ML SYR SUBCUT SCH (20:28)
[2019-10-20] MEDS: Mirtazapine TAB* 15 MG PO SCH (20:29)
[2019-10-20] MEDS: Zolpidem TAB* 10 MG PO PRN (23:45)
[2019-10-21 06:36] LABS: ABS Basophils 0.1 10^3/ul (0-0.2); ABS Eosinophils 0.1 10^3/ul (0-0.6); ABS Lymphocytes 2.1 10^3/ul (1.0-4.8); ABS Monocytes 0.5 10^3/ul (0-0.8); ABS Neutrophils 2.5 10^3/ul (1.5-7.7); Corrected Retic Count 1.2 % (0.5-1.5); Eosinophil % 2.4 %; Hematocrit 30 % (35-47); Hematocrit for Retic CNT 30 % (35-47); Hemoglobin 10.5 g/dL (12.0-16.0); Immature Retic Fraction 0.48; Lymphocyte % 39.1 %; Mean Corpuscular HGB Conc 35 g/dL (31-36); Mean Corpuscular Hemoglobin 32 pg (27-31); Mean Corpuscular Volume 93 fL (80-97); Mean Platelet Volume 7.2 fL (7.4-10.4); Platelet Count 253 10^3/uL (150-450); RBC Retic Count 3.25 10^6/uL (3.70-4.87); Red Blood Count 3.25 10^6 /uL (3.70-4.87); Red Cell Distribution Width 14 % (10-15); White Blood Count 5.2 10^3/uL (3.5-10.8)
[2019-10-21 06:52] LABS: BUN/Creatinine Ratio 18.8 (8-20); Calcium 8.6 mg/dL (8.6-10.3); EGFR African American 111.3 (>60); Potassium 3.6 mmol/L (3.5-5.0)
[2019-10-21 07:12] LABS: Ferritin 82.4 ng/mL (11-307)
[2019-10-21] MEDS: Senna TAB 8.6 mg* TAB PO SCH ×2 (08:12→20:55)
[2019-10-21] MEDS: Cyanocobalamin TAB* 500 MCG PO SCH (08:13)
[2019-10-21] MEDS: Pantoprazole TAB * 40 MG TAB PO SCH ×2 (08:13→20:55)
[2019-10-21] MEDS: Cholecalciferol TAB* 1000 UNITS PO SCH (08:13)
[2019-10-21] MEDS: DULoxetine DR CAP* 60 MG CAP.DR PO SCH (08:14)
[2019-10-21] MEDS: Methadone TAB* 10 MG PO SCH ×3 (08:14→23:42)
[2019-10-21] MEDS: Metoprolol Tartrate TAB* 25 MG PO SCH ×2 (08:17→20:55)
[2019-10-21] MEDS: amLODIPine TAB* 5 MG PO SCH (09:44)
[2019-10-21] MEDS: Mirtazapine TAB* 15 MG PO SCH (20:55)
[2019-10-21] MEDS: Enoxaparin(*) 40 MG/0.4 ML SYR SUBCUT SCH (20:55)
[2019-10-21] MEDS: Zolpidem TAB* 10 MG PO PRN (23:47)
[2019-10-22] MEDS: DULoxetine DR CAP* 60 MG CAP.DR PO SCH (08:15)
[2019-10-22] MEDS: Cholecalciferol TAB* 1000 UNITS PO SCH (08:16)
[2019-10-22] MEDS: amLODIPine TAB* 5 MG PO SCH (08:16)
[2019-10-22] MEDS: Methadone TAB* 10 MG PO SCH (08:16)
[2019-10-22] MEDS: Pantoprazole TAB * 40 MG TAB PO SCH (08:16)
[2019-10-22] MEDS: Metoprolol Tartrate TAB* 25 MG PO SCH (08:17)
[2019-10-22] MEDS: Cyanocobalamin TAB* 500 MCG PO SCH (08:17)
[2019-10-22] MEDS: Senna TAB 8.6 mg* TAB PO SCH (08:17)
[2019-10-22 11:36] VITALS: BP 148/67
[2019-10-22] MEDS: Carisoprodol TAB* 350 MG PO PRN (12:09)
[2019-10-24 09:38] LABS: Albumin 2.9 g/dL (3.4-4.7); Albumin/Globulin Ratio 0.99; Total Protein(PEP) 5.8 g/dL (6.3 - 7.9)
== END 2019-10-22 12:55 | disposition home or self-care (01) | DRG 392 ==
LOC: ED 13:34 → MEDTELE 21:49 → MED 10-18 17:51
PROVIDERS: ADMIT Family Medicine; ATTEND Internal Medicine Geriatric Medicine
DX: A09 Infectious gastroenteritis and colitis, unspecified (principal); R11.2 Nausea with vomiting, unspecified; I10 Essential (primary) hypertension; M51.26 Other intervertebral disc displacement, lumbar region; M48.00 Spinal stenosis, site unspecified; G89.4 Chronic pain syndrome; D64.9 Anemia, unspecified; E87.6 Hypokalemia; E86.9 Volume depletion, unspecified; F41.8 Other specified anxiety disorders; K59.00 Constipation, unspecified; K21.9 Gastro-esophageal reflux disease without esophagitis; Z82.61 Family history of arthritis; Z82.49 Family history of ischemic heart disease and other diseases of the circulatory system; Z87.891 Personal history of nicotine dependence; Z79.891 Long term (current) use of opiate analgesic; Z79.899 Other long term (current) drug therapy; Z88.2 Allergy status to sulfonamides
CPT/HCPCS: 36415; 71275; 74174; 80048; 80053; 81003; 81015; 82728; 83605; 83690; 83735; 84100; 84155; 84165; 85025; 85027; 85045; 86140; 87086; 93005; 96361; 96374; 96375; 99283; A9270-GY; J1650; J2405; J2543; J3010; J3475; J3490; Q9967